=== PATIENT | male | born 1985 | race Two or more races ===

== ENCOUNTER 2023-11-09 04:24 | Inpatient (IN) | payer OTHER ==
[~2023-11-09] VITALS: Ht 182.9 cm; Wt 95.5 kg
[~2023-11-09 04:24] MED LIST: BUSP10TA23 PO; MIRT-89 PO; VENL-67 PO
[2023-11-09 05:47] LABS: COVID AG,FIA SOURCE NASAL SWAB
[2023-11-09 06:12] LABS: BASOPHILS % (AUTO) 1.3 % (0.0-2.0); EOSINOPHILS % (AUTO) 4.5 % (1.0-6.0); HEMATOCRIT 43.9 % (41-53); HEMOGLOBIN 14.6 g/dL (13.5-17.5); LYMPHOCYTES # (AUTO) 2.3 K/uL (1.0-4.8); LYMPHOCYTES % (AUTO) 41.9 % (22.0-44.0); MEAN CORPUSCULAR HEMOGLOBIN 28.9 pg (26.0-34.0); MEAN CORPUSCULAR HGB CONC 33.4 G/dL (31.0-37.0); MEAN CORPUSCULAR VOLUME 87 fL (80-100); MONOCYTES # (AUTO) 0.5 K/uL (0.1-1.0); MONOCYTES % (AUTO) 8.9 % (2.0-9.0); NEUTROPHILS # (AUTO) 2.4 K/uL (1.8-7.7); NEUTROPHILS % (AUTO) 43.4 % (40.0-70.0); PLATELET COUNT (AUTO) 194 K/uL (150-450); RED BLOOD CELL COUNT(AUTO) 5.06 MIL/uL (4.50-5.90); RED CELL DISTRIBUTION WIDTH 13.2 % (11.5-14.5); WHITE BLOOD COUNT (AUTO) 5.6 K/uL (4.5-11.0)
[2023-11-09 06:12] LABS: SARS-COV2 (COVID) ANTIGEN,FIA Negative (Negative)
[2023-11-09 06:14] LABS: ANION GAP 7 mmol/L (8-16); CARBON DIOXIDE 30 mmol/L (22-29); CHLORIDE 102 mmol/L (98-107); CREATININE 0.93 mg/dL (0.60-1.30); GLOMERULAR FILTR. RATE CALC > 60 mL/min (>60); GLUCOSE,RANDOM 99 mg/dL (70-110); POTASSIUM 4.1 mmol/L (3.5-5.1); SODIUM SERUM 139 mmol/L (136-145); UREA NITROGEN, BLOOD 19 mg/dL (7-18)
[2023-11-09 06:20] LABS: ALANINE AMINOTRANSFERASE 33 U/L (12-78); ALBUMIN 4.1 g/dL (3.4-5.0); ALKALINE PHOSPHATASE 80 U/L (46-116); ASPARTATE AMINOTRANSFERASE 18 U/L (15-37); BILIRUBIN,TOTAL 0.7 mg/dL (0.1-1.0)
[2023-11-09 06:26] LABS: ALCOHOL, BLOOD (SERUM) < 3 mg/dL (0-10); CALCIUM, TOTAL 9.2 mg/dL (8.8-10.5)
[2023-11-09] MEDS: RisperiDONE 1 MG TABLET PO SCH (14:26)
[2023-11-09] MEDS ORDERED: INFLUENZA VIRUS VACCINE QVS 2023-24 (6MO+)/PF 60 MCG/0.5 ML SYRINGE IM. ONE (17:00)
[2023-11-09] MEDS ORDERED: MAGNESIUM HYDROXIDE SUSPENSION 30 ML UDCUP PO PRN (17:30)
[2023-11-09] MEDS ORDERED: ONDANSETRON HCL 4 MG/2 ML VIAL IVP PRN (17:30)
[2023-11-09] MEDS ORDERED: IPRATROPIUM BROMIDE 0.5 MG/2.5 ML NEB SOLUTION NEB PRN (17:30)
[2023-11-09] MEDS ORDERED: BISACODYL 10 MG RECTAL RECTAL SUPPOSITORY PR PRN (17:30)
[2023-11-09] MEDS ORDERED: HYDROCODONE/ACETAMINOPHEN 5-325 MG TABLET PO PRN (17:30)
[2023-11-09] MEDS ORDERED: MORPHINE SULFATE 2 MG/ML SYRINGE IVP PRN (17:30)
[2023-11-09] MEDS ORDERED: ALBUTEROL SULFATE 2.5 MG/0.5 ML NEB SOLUTION NEB PRN (17:30)
[2023-11-09] MEDS ORDERED: ZOLPIDEM TARTRATE 5 MG TABLET PO PRN (17:30)
[2023-11-09] MEDS: ACETAMINOPHEN 325 MG TABLET PO PRN (17:37)
[2023-11-09 17:39] VITALS: BP 110/77; PULSE 77; RESP 20; TEMP 98.4
[2023-11-09 20:13] VITALS: BP 103/59; PULSE 94; RESP 18; TEMP 97.7
[2023-11-09] MEDS: MIRTAZAPINE 30 MG TABLET PO SCH (20:26)
[2023-11-09] MEDS: BusPIRone HCL 10 MG TABLET PO SCH (20:27)
[2023-11-09] MEDS ORDERED: MIRTAZAPINE 15 MG TABLET PO SCH (21:00)
[2023-11-09] MEDS: HEPARIN SODIUM,PORCINE 5,000 UNITS/ML VIAL SQ SCH (23:24)
[2023-11-10 04:44] VITALS: BP 100/58; PULSE 76; RESP 18; TEMP 97.6
[2023-11-10 08:54] VITALS: BP 103/57; PULSE 93; RESP 20; TEMP 98.2
[2023-11-10] MEDS ORDERED: VENLAFAXINE HCL 75 MG ER CAPSULE PO SCH (09:00)
[2023-11-10] MEDS: VENLAFAXINE HCL 75 MG ER CAPSULE PO SCH (09:23)
[2023-11-10] MEDS: PANTOPRAZOLE SODIUM 40 MG DR TABLET PO SCH (09:24)
[2023-11-10 20:45] VITALS: BP 106/64; PULSE 87; RESP 20; TEMP 97.8
[2023-11-11 04:34] VITALS: BP 106/65; PULSE 84; RESP 18; TEMP 97.6
[2023-11-11 09:12] VITALS: BP 105/64; PULSE 87; RESP 19; TEMP 97.1
[2023-11-11] MEDS ORDERED: RISP-31 PO (14:12)
[2023-11-11] MEDS ORDERED: MIRT-149 PO (14:13)
[2023-11-11 20:07] VITALS: BP 107/69; PULSE 87; RESP 20; TEMP 98.2
== END 2023-11-11 21:05 | DRG 885 ==
LOC: EMS 04:25 → AHU 08:03 → 6N 14:54 → 6S 15:57
PROVIDERS: ADMIT Hospitalist; ATTEND Hospitalist
DX: F33.3 Major depressive disorder, recurrent, severe with psychotic symptoms (principal); R45.851 Suicidal ideations; F15.20 Other stimulant dependence, uncomplicated; Z72.0 Tobacco use; Z20.822 Contact with and (suspected) exposure to COVID-19; F41.9 Anxiety disorder, unspecified; G47.00 Insomnia, unspecified; Z79.899 Other long term (current) drug therapy
CPT/HCPCS: 71045; 80053; 85025; 90686; 99285; G0480; J1644; 36415-L1; 36415-TC; G0008